=== PATIENT | male | born 1985 | race Caucasian/White ===

== ENCOUNTER 2020-04-28 17:08 | Emergency (ER) | payer OTHER ==
--- NOTE | 2020-04-28 17:16 | PDOC ---
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 He states that he had a fever of 101F for which he took Tylenol for at 2pm. Also admits to chest tightness. Exam: afebrile, no acute distress Orders: EKG, CXR covid Pt to proceed to the ER for further evaluation Discharge Disposition - Diagnosis Fever - Referrals Referrals: Neisha Arnold MD [Primary Care Provider] - - Patient Instructions - Post Discharge Activity
[2020-04-28 17:18] VITALS: BMI 29.6
[2020-04-28 19:16] LABS: BASO % 0.3 % (0-2.0); EOS % 0.6 % (0-4.5); HEMATOCRIT 37.8 % (35.4-49); HEMOGLOBIN 12.7 GM/dL (11.7-16.9); LYMPH % 6.5 % (8-40); MCH 29.2 pg (25.7-33.7); MCHC 33.6 g/dl (32.0-35.9); MEAN PLT VOLUME 8.4 fl (7.5-11.1); NEUT % 84.6 % (42.8-82.8); PLATELET COUNT 251 K/MM3 (134-434); RBC 4.34 M/mm3 (4.00-5.60); RDW 13.1 % (11.9-15.9); WHITE BLOOD COUNT 16.6 K/mm3 (4.0-10.0)
[2020-04-28 19:23] LABS: INR 1.03 (0.83-1.09); PROTHROMBIN TIME (PATIENT) 12.2 SEC (9.7-13.0)
[2020-04-28 19:26] LABS: ACTIVATED PTT 30.4 SECONDS (25.2-36.5)
[2020-04-28 19:44] LABS: ALBUMIN 4.1 g/dl (3.4-5.0); ALK PHOS 78 U/L (45-117); ANION GAP 6 MMOL/L (8-16); BILIRUBIN,TOTAL 0.6 mg/dL (0.2-1); BLOOD UREA NITROGEN 15.5 mg/dL (7-18); CALCIUM 8.7 mg/dL (8.5-10.1); CHLORIDE 103 mmol/L (98-107); CO2 27 mmol/L (21-32); GLUCOSE,RANDOM 85 mg/dL (74-106); POTASSIUM 3.9 mmol/L (3.5-5.1); SGOT/AST 25 U/L (15-37); SGPT/ALT 35 U/L (13-61); SODIUM 136 mmol/L (136-145); TOT PROT 7.8 g/dl (6.4-8.2)
--- NOTE | 2020-04-28 19:45 | PDOC ---
Attending Attestation - Resident Resident Name: Roni Guzman - ED Attending Attestation I have performed the following: I have examined & evaluated the patient, The case was reviewed & discussed with the resident, I agree w/resident's findings & plan - HPI HPI: 04/28/20 20:31 see resident hpi - Physicial Exam PE: 04/28/20 20:31 see resident exam - Medical Decision Making 04/28/20 20:32 34-year-old male with fever body aches and soft stools Patient is well-appearing Discharge - Discharge Information Clinical Impression/Diagnosis: Fever - Follow up/Referral Referrals: Neisha Arnold MD [Primary Care Provider] - - Patient Discharge Instructions - Post Discharge Activity
--- NOTE | 2020-04-28 19:47 | PDOC ---
History of Present Illness - General Chief Complaint: Respiratory Stated Complaint: FEVER R/O COVID-19 Time Seen by Provider: 04/28/20 17:12 - History of Present Illness Initial Comments: 04/28/20 20:50 34yo M with no PMHx presents with fever to 101.7, chills, 1 loose stool, and PINEDA since this afternoon. He was in his usual state of health today running errands when he felt a fever developing. He called his PCP who instructed him to come to the hospital. Denies cough, sore throat, rash, sick contacts, h/o COVID. Denies n/v/d but endorses one loose stool. Past History - Medical History Allergies/Adverse Reactions: Allergies Allergy/AdvReac Type Severity Reaction Status Date / Time No Known Allergies Allergy Verified 04/28/20 17:17 Home Medications: Ambulatory Orders NK [No Known Home Medication] 04/28/20 COPD: No - Psycho-Social/Smoking History Smoking History: Never smoked Information on smoking cessation initiated: Yes - Substance Abuse Hx (Audit-C & DAST Scrn) How often the patient has a drink containing alcohol: Never Score: In Men: 4 or > Positive; In Women: 3 or > Positive: 0 Screen Result (Pos requires Nsg. Audit-10AR): Negative In the last yr the pt used illegal drug/Rx for NonMed reason: No Score: Yes response is considered Positive: 0 Screen Result (Positive result requires Nsg. DAST-10): Negative Review of Systems - Review of Systems Able to Perform ROS?: Yes Is the patient limited Welsh proficient: No Constitutional: Yes: Chills, Fever, Loss of Appetite (reports this is what happens when he gets sick). No: Diaphoresis, Malaise, Weakness HEENTM: No: Nose Congestion, Tinnitus, Throat Swelling, Mouth Pain, Difficulty Swallowing Respiratory: Yes: Other (mild discomfort with deep inspiration). No: Cough, Shortness of Breath, SOB with Exertion, SOB at Rest, Stridor, Wheezing, Productive cough, Hemoptysis Cardiac (ROS): Yes: Chest Tightness. No: Symptoms Reported, Edema, Lightheadedness ABD/GI: Yes: Other (loose stool x1). No: Constipated, Diarrhea : No: Symptoms Reported Musculoskeletal: No: Muscle Pain, Muscle Weakness Integumentary: No: Pruritus, Rash Neurological: Yes: Headache. No: Paresthesia, Weakness Endocrine: No: Symptoms Reported Hematologic/Lymphatic: No: Symptoms Reported All Other Systems: Reviewed and Negative *Physical Exam - Vital Signs Last Vital Signs Temp Pulse Resp BP Pulse Ox 98.9 F 86 19 138/84 99 04/28/20 17:15 04/28/20 17:15 04/28/20 17:15 04/28/20 17:15 04/28/20 18:11 - Physical Exam General Appearance: Yes: Nourished, Appropriately Dressed. No: Apparent D istress HEENT: positive: EOMI, Normal ENT Inspection, Normal Voice. negative: TMs Normal, Pharyngeal Erythema, Tonsillar Exudate, Tonsillar Erythema, Nasal Congestion, Rhinorrhea, Sinus Tenderness, Lesions Neck: positive: Trachea midline Respiratory/Chest: positive: Lungs Clear, Normal Breath Sounds. negative: Labored Respiration Cardiovascular: positive: Regular Rhythm, Regular Rate Gastrointestinal/Abdominal: positive: Normal Bowel Sounds, Soft Musculoskeletal: positive: Normal Inspection. negative: CVA Tenderness Extremity: positive: Normal Capillary Refill, Normal Inspection, Normal Range of Motion Integumentary: positive: Normal Color, Dry, Warm Neurologic: positive: Fully Oriented, Alert, Motor Strength 5/5. negative: Sensory Deficit ED Treatment Course - LABORATORY CBC & Chemistry Diagram: 04/28/20 18:15 04/28/20 18:15 - ADDITIONAL ORDERS Additional order review: Laboratory Results 04/28/20 04/28/20 04/28/20 18:15 18:15 18:15 PT with INR 12.20 INR 1.03 PTT (Actin FS) 30.4 D-Dimer 287 Sodium 136 Potassium 3.9 Chloride 103 Carbon Dioxide 27 Anion Gap 6 L BUN 15.5 Creatinine 1.0 Est GFR (CKD-EPI)AfAm 114.11 Est GFR (CKD-EPI)NonAf 98.45 Random Glucose 85 Calcium 8.7 Total Bilirubin 0.6 AST 25 ALT 35 Alkaline Phosphatase 78 C-Reactive Protein 2.2 H Total Protein 7.8 Albumin 4.1 04/28/20 18:15 RBC 4.34 MCV 87.0 MCHC 33.6 RDW 13.1 MPV 8.4 Neutrophils % 84.6 H Lymphocytes % 6.5 L Monocytes % 8.0 Eosinophils % 0.6 Basophils % 0.3 Medical Decision Making - Medical Decision Making 04/28/20 21:19 34yo otherwise healthy male presents w/ fever, chills, and mild discomfort w/ deep inspiration. 04/28/20 21:39 Fever to 101.7, chills, PINEDA, leukocytosis Discharge - Discharge Information Problems reviewed: Yes Clinical Impression/Diagnosis: Fever Qualifiers: Fever type: unspecified Qualified Code(s): R50.9 - Fever, unspecified Condition: Good Disposition: HOME - Admission No - Follow up/Referral Referrals: Neisha Arnold MD [Primary Care Provider] - - Patient Discharge Instructions Patient Printed Discharge Instructions: [facility]-Coronavirus Instructions, Sore Throat, DI for Viral Pharyngitis, DI for Fever (Symptom) -- Adult, DI for COVID- 19 (Suspected or Confirmed ) Additional Instructions: You came to the ED with a fever, headache, and chills. We tested you for influenza A and B, as well as COVID-19. You must self- quarantine yourself until you get your results. Someone will call you to tell you the results of your COVID test. Do not come to work or socialize until you receive the results. COVID-19 is very contagious. Follow up with your primary care doctor within 48hours of leaving the ED today, and come back if any of your symptoms get worse. - Post Discharge Activity
[2020-04-28] MEDS ORDERED: LACTATED RINGERS SOLUTION 1000 ML INFUS.BAG IV ONE (20:31)
[2020-04-28 20:35] LABS: LDH 198 U/L (87-246)
[2020-04-28] MEDS ORDERED: DEXAMETHASONE SOD PHOSPHATE 10 MG/1 ML VIAL IVPUSH ONE (21:44)
[2020-04-28] MEDS ORDERED: DEXAMETHASONE SOD PHOSPHATE 10 MG/1 ML VIAL ONE (21:47)
[2020-04-28 22:32] VITALS: BP 125/67; PULSE 68; TEMP 98.1
--- NOTE | 2020-04-29 13:23 | EKG ---
Test Reason : Blood Pressure : / mmHG Vent. Rate : 072 BPM Atrial Rate : 072 BPM P-R Int : 208 ms QRS Dur : 108 ms QT Int : 374 ms P-R-T Axes : 056 024 033 degrees QTc Int : 409 ms NORMAL SINUS RHYTHM NORMAL ECG NO PREVIOUS ECGS AVAILABLE Confirmed by VALENTINE ROCA MD ([id number]) on 04/29/2020 1:23:18 PM Referred By: Confirmed By:VALENTINE ROCA MD
== END 2020-04-28 22:18 | disposition home or self-care (01) ==
LOC: JER 17:08
PROC: 3E033GC Introduction of Other Therapeutic Substance into Peripheral Vein, Percutaneous Approach (ICD-10-PCS; principal; 2020-04-28)
DX: R50.9 Fever, unspecified (principal)
CPT/HCPCS: 36415; 71045-TC-FY; 71046-TC-FY; 80053; 83615; 84484; 85025; 85379; 85610; 85730; 86140; 87804; 93005; 93010; 99285-25; C9803; J1100; U0003

== ENCOUNTER 2020-06-17 18:38 | Emergency (ER) | payer OTHER ==
[2020-06-17 18:59] VITALS: BP 138/58; PULSE 66; TEMP 98.7; BMI 31.7
[2020-06-17] MEDS ORDERED: TETANUS AND DIPHTHERIA TOXOID 0.5 ML DISP.SYRIN IM ONE (19:06)
[2020-06-17] MEDS ORDERED: DIPHTH,PERTUSS(ACELL),TET 0.5 ML DISP.SYRIN IM ONE (19:12)
[2020-06-17 19:36] LABS: BASO % 0.6 % (0-2.0); HEMATOCRIT 37.6 % (35.4-49); HEMOGLOBIN 12.4 GM/dL (11.7-16.9); LYMPH % 35.9 % (8-40); MEAN CELL VOLUME 87.9 fl (80-96); MEAN PLT VOLUME 8.1 fl (7.5-11.1); MONO % 11.3 % (3.8-10.2); NEUT % 49.2 % (42.8-82.8); PLATELET COUNT 267 K/MM3 (134-434); RBC 4.28 M/mm3 (4.00-5.60); RDW 13.4 % (11.9-15.9); WHITE BLOOD COUNT 5.2 K/mm3 (4.0-10.0)
[2020-06-17 20:12] LABS: POTASSIUM 3.9 mmol/L (3.5-5.1)
[2020-06-17 20:14] LABS: ALBUMIN 4.4 g/dl (3.4-5.0); BLOOD UREA NITROGEN 20.4 mg/dL (7-18)
[2020-06-17 20:19] LABS: BILIRUBIN,TOTAL 0.2 mg/dL (0.2-1); TOT PROT 7.8 g/dl (6.4-8.2)
[2020-06-17 22:05] LABS: HIV INTERPRETATION NEGATIVE (NEGATIVE)
== END 2020-06-17 21:18 | disposition home or self-care (01) ==
LOC: JERFT 18:38 → JER 18:38 → JERFT 21:18
PROC: 3E0234Z Introduction of Serum, Toxoid and Vaccine into Muscle, Percutaneous Approach (ICD-10-PCS; principal; 2020-06-17)
DX: S61.239A Puncture wound without foreign body of unspecified finger without damage to nail, initial encounter (principal); Z77.21 Contact with and (suspected) exposure to potentially hazardous body fluids
CPT/HCPCS: 36415; 80053; 85025; 86317; 86704; 86706; 86803; 87340; 87389; 99284-25